=== PATIENT | female | born 1985 | race African-American/Black ===

== ENCOUNTER 2021-02-27 02:25 | Emergency (ER) | payer MEDICAID ==
[~2021-02-27] VITALS: Ht 167.6 cm; Wt 79.0 kg
[2021-02-27] MEDS ORDERED: MAGNESIUM/ALUMINUM HYDROXIDE/SIMETHICONE 30ML UDC PO STA (03:16)
[2021-02-27] MEDS ORDERED: VISCOUS LIDOCAINE 2% 15 ML UDC PO STA (03:16)
[2021-02-27] MEDS ORDERED: FAMOTIDINE 20MG TABLET PO ONE (03:30)
[2021-02-27 03:34] LABS: BASOPHILS % 0.8 % (0.0-2.0); EOSINOPHILS % 3.3 % (0.0-5.0); HEMATOCRIT. 37.2 % (36.0-48.0); LYMPHOCYTES % 52.7 % (20.0-50.0); MEAN CORPUSCULAR HEMOGLOBIN 24.1 pg (28.0-32.0); MEAN CORPUSCULAR VOLUME 74.9 fL (81.0-99.0); MEAN PLATELET VOLUME 8.3 fl (7.4-10.4); MONOCYTES % 11.1 % (2.0-8.0); NEUTROPHILS % 32.1 % (40.0-76.0); PLATELET 271 x1000/uL (130-400); RED BLOOD CELL COUNT 4.97 mill/uL (4.2-5.4); RED CELL DISTRIBUTION WIDTH 15.4 % (11.6-14.6)
[2021-02-27 03:41] LABS: CHLORIDE 108 mEq/L (98-107)
[2021-02-27 03:43] LABS: HCG SCREEN NEGATIVE
[2021-02-27 03:47] LABS: ETHANOL BLOOD < 10 mg/dL
[2021-02-27 04:24] LABS: CLARITY URINE CLEAR (CLEAR); COLOR URINE YELLOW (YELLOW); KETONES URINE TRACE (NEGATIVE); LEUKOCYTE ESTERASE URINE NEGATIVE (NEGATIVE); NITRITE URINE NEGATIVE (NEGATIVE); OCCULT BLOOD URINE TRACE (NEGATIVE); PH URINE 6.5 (4.5-8.0); PROTEIN URINE NEGATIVE (NEGATIVE); SPECIFIC GRAVITY URINE 1.027 (1.005-1.030)
[2021-02-27 06:46] VITALS: BP 105/62
== END 2021-02-27 06:50 | disposition home or self-care (01) ==
LOC: ER 02:25
DX: R10.13 Epigastric pain (principal); F12.10 Cannabis abuse, uncomplicated
CPT/HCPCS: 36415; 80053; 80320; 81003; 84703; 85025; 99284; G0480

== ENCOUNTER 2022-09-18 18:36 | Emergency (ER) | payer MEDICAID ==
[~2022-09-18] VITALS: Ht 170.2 cm; Wt 79.0 kg
[2022-09-18 18:42] VITALS: BP 129/78
[2022-09-19] MEDS ORDERED: KETOROLAC 60MG/2ML VIAL IM ONE (03:30)
== END 2022-09-19 05:12 | disposition home or self-care (01) ==
LOC: ER 18:36
DX: M25.511 Pain in right shoulder (principal); F12.10 Cannabis abuse, uncomplicated; G43.909 Migraine, unspecified, not intractable, without status migrainosus
CPT/HCPCS: 73030; 99283